=== PATIENT | female | born 1980 | race Caucasian/White ===

== ENCOUNTER 2016-11-26 01:51 | Emergency (ER) | payer OTHER ==
[~2016-11-26 01:51] MED LIST: ABILIFY5 MG PO; PEPCID20 MG PO; PRENATAL1 TAB
--- NOTE | 2016-11-26 03:29 | ED CLINICAL REPORT ---
Clinical Report - Physicians/Mid Levels [facility] [address] [address] 11/26/2016 1:52 Patient: BREA MONTANA Time Seen: 02:52. Arrived- By private vehicle. Historian- patient. HISTORY OF PRESENT ILLNESS Chief Complaint: COUGH. 27 weeks. This started 5 days ago; 5 of cough and 1 goopy eyes,. The illness is described as moderate. The patient has had sputum production, a cough, a mild sore throat and moderate nasal congestion. No difficulty breathing, fever or ear pain. Additional history - The patient has had contact with a sick individual. Similar symptoms previously: None. Recent medical care: The patient was seen recently by a health care provider. ( Routine OB appointments). REVIEW OF SYSTEMS The patient has had eye discomfort involving the right eye and left eye with burning, discharge and red eye. No abdominal pain or pain, abnormal bleeding, fever or ear pain. No chest pain, difficulty breathing, urinary frequency or difficulty with urination. Currently . The patient has had a sore throat, eye irritation and a cough. PAST HISTORY PCP: OB: Jeffrey Porras OB Ops: None Hosp: Meningitis 2004 Illness: None. Additional Surgeries: no known surgeries. Medications: Multivitamin Oral. Allergies: No Known Drug Allergy. ADDITIONAL NOTES The nursing notes have been reviewed. PHYSICAL EXAM Vital Signs: 11/26/2016 03:37 BP: 99/58. HR: 80. RR: 18. O2 saturation: 99%. Temp: 98.5 F. 11/26/2016 01:57 BP: 123/59. HR: 81. RR: 17. O2 saturation: 100%. Temp: 97.9 F. Pain level now: 6/10. Appearance: Alert. No acute distress. Eyes: Mild redness of the right conjunctiva and mild, thin exudate on the right; mild redness of the left conjunctiva and mild, thin exudate on the left. No scleral icterus. ENT: Ears normal. Pharynx normal. No pharyngeal erythema, mouth ulcerations, tonsillar exudate, peritonsillar mass or muffled or hoarse voice. Neck: Normal inspection. No meningeal signs. CVS: Normal heart rate and rhythm. Heart sounds normal. Respiratory: No respiratory distress. Breath sounds normal. Abdomen: Soft and nontender. No guarding. Back: No CVA tenderness. Skin: Skin warm. Normal skin color. No rash. Extremities: Extremities exhibit normal ROM. No lower extremity edema. Neuro: No alteration in mental status. LABS, X-RAYS, AND EKG Laboratory Tests: Culture, Strep Screen: (LISBETH: 11/26/2016 03:00) ( MsgRcvd 11/26/2016 03:23) Final results Test Result Flag Units (Reference) RAPID STREP SCREEN - THROAT CALLED TO: N/A -- DATE: 11/26/16 NEGATIVE SCREEN: RAPID STREP SCREEN NEGATIVE; CONFIRMATION TO FOLLOW . PROGRESS AND PROCEDURES Course of Care: This illness is most CW viral bronchitis and conjunctivitis. Disposition: Discharged. Condition: stable. CLINICAL IMPRESSION Acute viral bronchitis. Acute conjunctivitis of the right eye and left eye. 27 WEEK (BY HISTORY). INSTRUCTIONS (IMMEDIATE RECHECK IF WORSE EXPECT 4 WEEKS OF COUGH IMMEDIATE RECHECK FOR FEVER OR SIGNIFICANT PROBLEMS BREATHING.). Prescription Medications: Albuterol HFA oral inhaler: inhale 1-2 puffs via spacer every 4 hours as needed. Dispense one (1) unit. No refill. Sulf - 10 ophthalmic solution 10% : Instill 2 drops into affected eye every 2 hours while awake for 1 week. Dispense fifteen (15) mL. No refills. Substitution is permissible. Understanding of the discharge instructions verbalized by patient. (Electronically signed by Nick Daigle MD 11/28/2016 16:06)
--- NOTE | 2016-11-26 03:29 | ED CLINICAL REPORT ---
Clinical Report - Physicians/Mid Levels [facility] [address] [place] [place] [address] 11/26/2016 1:52 Patient: BREA MONTANA Time Seen: 02:52. Arrived- By private vehicle. Historian- patient. HISTORY OF PRESENT ILLNESS Chief Complaint: COUGH. 27 weeks. This started 5 days ago; 5 of cough and 1 goopy eyes,. The illness is described as moderate. The patient has had sputum production, a cough, a mild sore throat and moderate nasal congestion. No difficulty breathing, fever or ear pain. Additional history - The patient has had contact with a sick individual. Similar symptoms previously: None. Recent medical care: The patient was seen recently by a health care provider. ( Routine OB appointments). REVIEW OF SYSTEMS The patient has had eye discomfort involving the right eye and left eye with burning, discharge and red eye. No abdominal pain or pain, abnormal bleeding, fever or ear pain. No chest pain, difficulty breathing, urinary frequency or difficulty with urination. Currently . The patient has had a sore throat, eye irritation and a cough. PAST HISTORY PCP: OB: Jeffrey Porras OB Ops: None Hosp: Meningitis 2004 Illness: None. Additional Surgeries: no known surgeries. Medications: Multivitamin Oral. Allergies: No Known Drug Allergy. ADDITIONAL NOTES The nursing notes have been reviewed. PHYSICAL EXAM Vital Signs: 11/26/2016 03:37 BP: 99/58. HR: 80. RR: 18. O2 saturation: 99%. Temp: 98.5 F. 11/26/2016 01:57 BP: 123/59. HR: 81. RR: 17. O2 saturation: 100%. Temp: 97.9 F. Pain level now: 6/10. Appearance: Alert. No acute distress. Eyes: Mild redness of the right conjunctiva and mild, thin exudate on the right; mild redness of the left conjunctiva and mild, thin exudate on the left. No scleral icterus. ENT: Ears normal. Pharynx normal. No pharyngeal erythema, mouth ulcerations, tonsillar exudate, peritonsillar mass or muffled or hoarse voice. Neck: Normal inspection. No meningeal signs. CVS: Normal heart rate and rhythm. Heart sounds normal. Respiratory: No respiratory distress. Breath sounds normal. Abdomen: Soft and nontender. No guarding. Back: No CVA tenderness. Skin: Skin warm. Normal skin color. No rash. Extremities: Extremities exhibit normal ROM. No lower extremity edema. Neuro: No alteration in mental status. LABS, X-RAYS, AND EKG Laboratory Tests: Culture, Strep Screen: (LISBETH: 11/26/2016 03:00) ( MsgRcvd 11/26/2016 03:23) Final results Test Result Flag Units (Reference) RAPID STREP SCREEN - THROAT CALLED TO: N/A -- DATE: 11/26/16 NEGATIVE SCREEN: RAPID STREP SCREEN NEGATIVE; CONFIRMATION TO FOLLOW . PROGRESS AND PROCEDURES Course of Care: This illness is most CW viral bronchitis and conjunctivitis. Disposition: Discharged. Condition: stable. CLINICAL IMPRESSION Acute viral bronchitis. Acute conjunctivitis of the right eye and left eye. 27 WEEK (BY HISTORY). INSTRUCTIONS (IMMEDIATE RECHECK IF WORSE EXPECT 4 WEEKS OF COUGH IMMEDIATE RECHECK FOR FEVER OR SIGNIFICANT PROBLEMS BREATHING.). Prescription Medications: Albuterol HFA oral inhaler: inhale 1-2 puffs via spacer every 4 hours as needed. Dispense one (1) unit. No refill. Sulf - 10 ophthalmic solution 10% : Instill 2 drops into affected eye every 2 hours while awake for 1 week. Dispense fifteen (15) mL. No refills. Substitution is permissible. Understanding of the discharge instructions verbalized by patient. (Electronically signed by Nick Daigle MD 11/28/2016 16:06)
--- NOTE | 2016-11-26 03:30 | ED NURSING NOTES ---
Clinical Report - Nurses [facility] [address] [place] [address] 11/26/2016 1:52 Patient: BREA MONTANA TRIAGE Triage time 01:58. Acuity: LEVEL 4. Chief Complaint: SORE THROAT and COUGH (itchy, watery eyes). --02:01 Nia Davila R.N. 01:57 11/26/16. BP: 123/59. HR: 81. RR: 17. O2 saturation: 100%. Temp: 97.9 F (oral). Pain level now: 02/01. --02:01 Nia Davila R.N. Weight: 83.9 kg stated. Height/Length: 68.5 inches Per Patient. BMI: 27.7. --02:01 Nia Davila R.N. Medications Multivitamin Oral. --02:00 Nia Davila R.N. Allergies No Known Drug Allergy. --02:00 Nia Davila R.N. History Arrived by private vehicle. Historian: patient. Primary physician ([facility]). Onset. (about 5 days ago (eye pain began today)). PAST MEDICAL HX: Immunizations: up-to-date. Currently : 27 weeks EDC:02/26/17. SOCIAL HX: Never smoker. No alcohol use or drug use. NUTRITIONAL RISK ASSESSMENT: The nutritional risk assessment revealed no deficiencies. FUNCTIONAL ASSESSMENT: Functional assessment: no impairments noted. --02:01 Nia Davila R.N. 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 --02:02 Nia Davila R.N. ADDITIONAL SURGERIES: no known surgeries. Interventions ID band on patient. To treatment room. --02:01 Nia Davila R.N. PHYSICAL ASSESSMENT Ambulatory to room. GENERAL / NEURO / PSYCH: Alert. Appears in no acute distress. HEENT: Mucous membranes are pink. RESPIRATORY: Respirations not labored. Cough. CVS: Capillary refill less than 2 seconds. SKIN: Skin is warm and dry. --02:01 Nia Davila R.N. NURSING PROGRESS NOTES Head of bed elevated. Two patient identifiers checked. Call light placed in reach. Side rails up x 1. Bed placed in lowest position. Brakes of bed on. --02:01 Nia Davila R.N. Patient ready for evaluation- chart flagged. --02:01 Nia Davila R.N. 03:10. Patient ID band checked for patient name and birthdate: patient confirmed. Throat swab obtained for rapid strep; labeled in the presence of the patient and sent to lab (collected by [facility]). --03:20 Nia Davila R.N. DISPOSITION / DISCHARGE 03:37 11/26/16. Condition at departure: improved and stable. The goals identified in the patient's plan of care were met. No learning barriers present. Reviewed medication(s) side effects, precautions, dosing and course information. Prescription(s) given to the patient. Patient verbalized understanding. Written instructions provided in Turkmen. The patient was discharged home and unaccompanied at time of discharge. She left the Emergency Department ambulatory and via private vehicle. Patient driving. FALL RISK ASSESSMENT: Fall risk assessment completed. No fall risk identified. --03:37 Julieta Walsh R.N. 03:37 11/26/16. BP: 99/58. HR: 80. RR: 18. O2 saturation: 99%. Temp: 98.5 F. Pain level now 0/10. --03:37 Julieta Walsh R.N. Departure time: 03:37 Nov 26 2016. --03:38 Julieta Walsh R.N. Locked/Released at 11/26/2016 3:38 by Julieta Walsh R.N.
--- NOTE | 2016-11-26 03:30 | ED ORDER SUMMARY ---
..... Patient: BREA MONTANA OrderSheet [facility] VisitID: [id number] [address] [place] [address] 36y, F Registration Date/Time: 11/26/2016 ORDER SHEET Weight: 83.9 kg (stated) Allergies: No Known Drug Allergy GENERAL ORDERS: Culture, Strep Screen Urgent (03:00 11/26/2016 Shahab PATTERSON) (Ack 3:15 Pool) (3:20 Hans Van) MEDICATION ORDERS: IV FLUIDS: ORDER SHEET NOTES: [Electronically signed by Julieta Walsh R.N. (03:38 11/26/2016)] [Electronically signed by Nick Daigle MD (16:06 11/28/2016)] [Electronically locked/signed by Julieta Walsh R.N. (03:38 11/26/2016)]
--- NOTE | 2016-11-26 03:30 | ED NURSING NOTES ---
Clinical Report - Nurses [facility] [address] [place] [address] 11/26/2016 1:52 Patient: BREA MONTANA TRIAGE Triage time 01:58. Acuity: LEVEL 4. Chief Complaint: SORE THROAT and COUGH (itchy, watery eyes). --02:01 Nia Davila R.N. 01:57 11/26/16. BP: 123/59. HR: 81. RR: 17. O2 saturation: 100%. Temp: 97.9 F (oral). Pain level now: 02/01. --02:01 Nia Davila R.N. Weight: 83.9 kg stated. Height/Length: 68.5 inches Per Patient. BMI: 27.7. --02:01 Nia Davila R.N. Medications Multivitamin Oral. --02:00 Nia Davila R.N. Allergies No Known Drug Allergy. --02:00 Nia Davila R.N. History Arrived by private vehicle. Historian: patient. Primary physician ([facility]). Onset. (about 5 days ago (eye pain began today)). PAST MEDICAL HX: Immunizations: up-to-date. Currently : 27 weeks EDC:02/26/17. SOCIAL HX: Never smoker. No alcohol use or drug use. NUTRITIONAL RISK ASSESSMENT: The nutritional risk assessment revealed no deficiencies. FUNCTIONAL ASSESSMENT: Functional assessment: no impairments noted. --02:01 Nia Davila R.N. 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 --02:02 Nia Davila R.N. ADDITIONAL SURGERIES: no known surgeries. Interventions ID band on patient. To treatment room. --02:01 Nia Davila R.N. PHYSICAL ASSESSMENT Ambulatory to room. GENERAL / NEURO / PSYCH: Alert. Appears in no acute distress. HEENT: Mucous membranes are pink. RESPIRATORY: Respirations not labored. Cough. CVS: Capillary refill less than 2 seconds. SKIN: Skin is warm and dry. --02:01 Nia Davila R.N. NURSING PROGRESS NOTES Head of bed elevated. Two patient identifiers checked. Call light placed in reach. Side rails up x 1. Bed placed in lowest position. Brakes of bed on. --02:01 Nia Davila R.N. Patient ready for evaluation- chart flagged. --02:01 Nia Davila R.N. 03:10. Patient ID band checked for patient name and birthdate: patient confirmed. Throat swab obtained for rapid strep; labeled in the presence of the patient and sent to lab (collected by [facility]). --03:20 Nia Davila R.N. DISPOSITION / DISCHARGE 03:37 11/26/16. Condition at departure: improved and stable. The goals identified in the patient's plan of care were met. No learning barriers present. Reviewed medication(s) side effects, precautions, dosing and course information. Prescription(s) given to the patient. Patient verbalized understanding. Written instructions provided in [place] Citizen. The patient was discharged home and unaccompanied at time of discharge. She left the Emergency Department ambulatory and via private vehicle. Patient driving. FALL RISK ASSESSMENT: Fall risk assessment completed. No fall risk identified. --03:37 Julieta Walsh R.N. 03:37 11/26/16. BP: 99/58. HR: 80. RR: 18. O2 saturation: 99%. Temp: 98.5 F. Pain level now 0/10. --03:37 Julieta Walsh R.N. Departure time: 03:37 Nov 26 2016. --03:38 Julieta Walsh R.N. Locked/Released at 11/26/2016 3:38 by Julieta Walsh R.N.
--- NOTE | 2016-11-26 03:30 | ED ORDER SUMMARY ---
..... Patient: BREA MONTANA OrderSheet [facility] VisitID: [id number] [address] [place] [address] 36y, F Registration Date/Time: 11/26/2016 ORDER SHEET Weight: 83.9 kg (stated) Allergies: No Known Drug Allergy GENERAL ORDERS: Culture, Strep Screen Urgent (03:00 11/26/2016 Shahab PATTERSON) (Ack 3:15 Pool) (3:20 Hans Van) MEDICATION ORDERS: IV FLUIDS: ORDER SHEET NOTES: [Electronically signed by Julieta Walsh R.N. (03:38 11/26/2016)] [Electronically signed by Nick Daigle MD (16:06 11/28/2016)] [Electronically locked/signed by Julieta Walsh R.N. (03:38 11/26/2016)]
--- NOTE | 2016-11-28 16:06 | ED DISCHARGE INSTRUCTIONS ---
Patient: BREA MONTANA General Instructions [facility] VisitID: [id number] [place] [address] 36y, F Registration Date/Time: 11/26/2016 Acute viral bronchitis. Acute conjunctivitis of the right eye and left eye. 27 WEEK (BY HISTORY). INSTRUCTIONS (IMMEDIATE RECHECK IF WORSE EXPECT 4 WEEKS OF COUGH IMMEDIATE RECHECK FOR FEVER OR SIGNIFICANT PROBLEMS BREATHING.). Prescription Medications: Albuterol HFA oral inhaler: inhale 1-2 puffs via spacer every 4 hours as needed. Dispense one (1) unit. No refill. Sulf - 10 ophthalmic solution 10% : Instill 2 drops into affected eye every 2 hours while awake for 1 week. Dispense fifteen (15) mL. No refills. Substitution is permissible. Understanding of the discharge instructions verbalized by patient. ADDITIONAL INFORMATION Bronchitis, Viral (Adult: No Abx) You have a viral bronchitis. This illness is contagious during the first few days and is spread through the air by coughing and sneezing, or by direct contact (touching the sick person and then touching your own eyes, nose, or mouth). Most viral illnesses resolve within 10-14 days with rest and simple home remedies, although they may sometimes last for several weeks. Antibiotics will not kill a virus and are generally not prescribed for this condition. Home Care: If symptoms are severe, rest at home for the first 2-3 days. When resuming activity, don't let yourself become overly tired. Do not smoke and avoid the smoke of others. You may use acetaminophen (Tylenol) or ibuprofen (Motrin, Advil) to control fever or pain, unless another pain medicine was prescribed. [NOTE: If you have chronic liver or kidney disease or ever had a stomach ulcer or GI bleeding, talk with your doctor before using these medicines.] (Aspirin should never be used in anyone under 18 years of age who is ill with a fever. It may cause severe liver damage.) Your appetite may be poor so a light diet is fine. Avoid dehydration by drinking 6-8 glasses of fluids per day (water, sport drinks such as Gatorade, juices, tea, soup, etc.). Extra fluids will help loosen secretions in the nose and lung. Qapt-sks-qecyuir cold medicines will not shorten the length of the illness, but may be helpful for cough (Robitussin DM), sore throat (Chloraseptic lozenges or spray), nasal and sinus congestion (Actifed or Sudafed). [NOTE: Do not use decongestants if you have high blood pressure.] Follow Up with your doctor or as directed by our staff if you are not improving over the next week. NOTE: If you are age 65 or older, or if you have chronic asthma or COPD, we recommend a PNEUMOCOCCAL VACCINATION every five years and a yearly INFLUENZAVACCINATION (FLU-SHOT) every . Ask your doctor about this. If you had an X-ray, a radiologist will review it. You will be notified of any new findings that may affect your care.] Get Prompt Medical Attention if any of the following occur: Fever over 100.4F (38.0C) for more than three days Trouble breathing, wheezing or pain with breathing Coughing up blood or increased amounts of colored sputum Weakness, drowsiness, headache, facial pain, ear pain or a stiff neck Conjunctivitis, Non-Specific The membrane that covers your eye is inflamed. Any itching, burning or irritation should go away within the next 24 hours. Conjunctivitis may be related to a particle that was in your eye. If so, it was washed out with your tears or irrigation treatment. Being exposed to liquid chemicals or fumes may also cause this reaction. Your condition does not appear to be due to an eye infection. Home Care: Apply a cold pack (ice in a plastic bag, wrapped in a towel) over the eye for 20 minutes at a time. This will reduce pain. Eye drops may be prescribed to reduce irritation or redness. Otherwise, Visine or similar lgvg-sfc-vrvwmsw decongestant eye drops may be used. You may use acetaminophen (Tylenol) or ibuprofen (Motrin, Advil) to control pain, unless another medicine was prescribed. [ NOTE: If you have chronic liver or kidney disease or ever had a stomach ulcer or GI bleeding, talk with your doctor before using these medicines.] Follow Up with your doctor or this facility as directed, or if your symptoms have not improved after 24 hours. Get Prompt Medical Attention if any of the following occur: Increased eyelid swelling Increase in eye pain Increased redness or drainage from the eye Failure of normal vision to return within 24-48 hours. Albuterol Sulfate Pressurized inhalation, suspension What is this medicine? ALBUTEROL (al BYOO ter ole) is a bronchodilator. It helps open up the airways in your lungs to make it easier to breathe. This medicine is used to treat and to prevent bronchospasm. How should I use this medicine? This medicine is for inhalation through the mouth. Follow the directions on your prescription label. Take your medicine at regular intervals. Do not use more often than directed. Make sure that you are using your inhaler correctly. Ask you doctor or health care provider if you have any questions. Talk to your business office assistant regarding the use of this medicine in children. Special care may be needed. What side effects may I notice from receiving this medicine? Side effects that you should report to your doctor or health healthcare educator as soon as possible: allergic reactions like skin rash, itching or hives, swelling of the face, lips, or tongue breathing problems chest pain feeling faint or lightheaded, falls high blood pressure irregular heartbeat fever muscle cramps or weakness pain, tingling, numbness in the hands or feet vomiting Side effects that usually do not require medical attention (report to your doctor or health healthcare educator if they continue or are bothersome): cough difficulty sleeping headache nervousness or trembling stomach upset stuffy or runny nose throat irritation unusual taste What may interact with this medicine? anti-infectives like chloroquine and pentamidine caffeine cisapride diuretics medicines for colds medicines for depression or for emotional or psychotic conditions medicines for weight loss including some herbal products methadone some antibiotics like clarithromycin, erythromycin, levofloxacin, and linezolid some heart medicines steroid hormones like dexamethasone, cortisone, hydrocortisone theophylline thyroid hormones What if I miss a dose? If you miss a dose, use it as soon as you can. If it is almost time for your next dose, use only that dose. Do not use double or extra doses. Where should I keep my medicine? Keep out of the reach of children. Store at room temperature between 15 and 30 degrees C (59 and 86 degrees F). The contents are under pressure and may burst when exposed to heat or flame. Do not freeze. This medicine does not work as well if it is too cold. Throw away any unused medicine after the expiration date. Inhalers need to be thrown away after the labeled number of puffs have been used or by the expiration date; whichever comes first. Ventolin HFA should be thrown away 12 months after removing from foil pouch. Check the instructions that come with your medicine. What should I tell my health care provider before I take this medicine? They need to know if you have any of the following conditions: diabetes heart disease or irregular heartbeat high blood pressure pheochromocytoma seizures thyroid disease an unusual or allergic reaction to albuterol, levalbuterol, sulfites, other medicines, foods, dyes, or preservatives or trying to get breast-feeding What should I watch for while using this medicine? Tell your doctor or health healthcare educator if your symptoms do not improve. Do not use extra albuterol. If your asthma or bronchitis gets worse while you are using this medicine, call your doctor right away. If your mouth gets dry try chewing sugarless gum or sucking hard candy. Drink water as directed. You have been given the following additional information: Bronchitis, No Antibiotic (Adult) Conjunctivitis, Non-Specific Albuterol Sulfate Pressurized inhalation, suspension (Electronically signed by Nick Daigle MD 11/28/2016 16:06)
--- NOTE | 2016-11-28 16:06 | ED MED RECONCILIATION SUMMARY ---
Patient: BREA MONTANA Medication Reconciliation Report [facility] VisitID: [id number] [place] [address] 36y, F Registration Date/Time: 11/26/2016 Weight: 83.9 kg Height/Length: 60 in. BMI: 27.7 ALLERGIES: No Known Drug Allergy The patient's Home Medications are listed below: THE FOLLOWING MEDICATIONS NEED TO BE RECONCILED: Multivitamin Oral The source(s) of the original Home Medication information: Not obtained. The following Medications were given to the patient in the Emergency Department: None. The following Medications were prescribed to the patient: Albuterol HFA oral inhaler: inhale 1-2 puffs via spacer every 4 hours as needed. Dispense one (1) unit. No refill. -- Nick Daigle MD Sulf - 10 ophthalmic solution 10% : Instill 2 drops into affected eye every 2 hours while awake for 1 week. Dispense fifteen (15) mL. No refills. Substitution is permissible. -- Nick Daigle MD
--- NOTE | 2016-11-28 16:06 | ED MAR SUMMARY ---
..... Medication Administration Record [facility] [address] [place], [place] [id number] Patient: BREA MONTANA Visit ID: [id number] 36y, F Weight: 83.9 kg Height/Length: 68.5 in BMI: 27.7 ALLERGIES: No Known Drug Allergy
--- NOTE | 2016-11-28 16:06 | ED MAR SUMMARY ---
..... Medication Administration Record [facility] [address] [place], [place] [id number] Patient: BREA MONTANA Visit ID: [id number] 36y, F Weight: 83.9 kg Height/Length: 68.5 in BMI: 27.7 ALLERGIES: No Known Drug Allergy
--- NOTE | 2016-11-28 16:06 | ED MED RECONCILIATION SUMMARY ---
Patient: BREA MONTANA Medication Reconciliation Report Located Within [facility] VisitID: [id number] [place] [address] 36y, F Registration Date/Time: 11/26/2016 Weight: 83.9 kg Height/Length: 60 in. BMI: 27.7 ALLERGIES: No Known Drug Allergy The patient's Home Medications are listed below: THE FOLLOWING MEDICATIONS NEED TO BE RECONCILED: Multivitamin Oral The source(s) of the original Home Medication information: Not obtained. The following Medications were given to the patient in the Emergency Department: None. The following Medications were prescribed to the patient: Albuterol HFA oral inhaler: inhale 1-2 puffs via spacer every 4 hours as needed. Dispense one (1) unit. No refill. -- Nick Daigle MD Sulf - 10 ophthalmic solution 10% : Instill 2 drops into affected eye every 2 hours while awake for 1 week. Dispense fifteen (15) mL. No refills. Substitution is permissible. -- Nick Daigle MD
== END 2016-11-26 03:38 | disposition home or self-care (01) ==
LOC: ED SRH 01:51
DX: J20.8 Acute bronchitis due to other specified organisms (principal); H10.33 Unspecified acute conjunctivitis, bilateral; Z33.1 Pregnant state, incidental
CPT/HCPCS: 90154; 90159